=== PATIENT | female | born 1990 | race American Indian/Alaskan Native ===

== ENCOUNTER 2019-12-24 04:29 | Emergency (ER) | payer MEDICAID ==
[2019-12-24 04:34] VITALS: BP 117/72
[2019-12-24 05:10] LABS: Basophils # (Auto) 0.1 K/mm3 (0.0-0.1); Basophils % (Auto) 0.7 % (0.0-1.8); Eosinophils # (Auto) 0.2 K/mm3 (0.0-0.4); Hematocrit 36.4 % (30.3-42.9); Hemoglobin 12.5 gm/dl (10.1-14.3); Lymphocytes # (Auto) 2.2 K/mm3 (1.2-5.4); Mean Corpuscular HGB Conc 34 % (30-34); Mean Corpuscular Volume 94 fl (79-97); Monocytes # (Auto) 0.9 K/mm3 (0.0-0.8); Monocytes % (Auto) 11.3 % (0.0-7.3); Platelet Count 298 K/mm3 (140-440); Red Blood Count 3.86 M/mm3 (3.65-5.03); Red Cell Distribution Width 12.8 % (13.2-15.2)
[2019-12-24 05:28] LABS: Alanine Aminotransferase 42 units/L (7-56); Albumin 4.2 g/dL (3.9-5); Blood Urea Nitrogen 5 mg/dL (7-17); Calcium 9.7 mg/dL (8.4-10.2); Hemolysis Index 4
[2019-12-24 05:45] LABS: BUN/Creatinine Ratio 8
[2019-12-24 07:33] LABS: Bilirubin,Urine NEG (Negative); Blood,Urine NEG (Negative); Color,Urine Yellow (Yellow); Mucus,Urine 3+ /HPF; Protein,Urine <15 mg/dL mg/dL (Negative); Urobilinogen,Urine < 2.0 mg/dL (<2.0); WBC,Urine < 1.0 /HPF (0.0-6.0)
--- NOTE | 2019-12-24 08:00 | Ultrasound Report ---
ULTRASOUND ABDOMEN, LIMITED (RIGHT UPPER QUADRANT) INDICATION / CLINICAL INFORMATION: upper abd pain/preg. COMPARISON: None available. FINDINGS: PANCREAS: Visualized portion shows no significant abnormality. LIVER: No significant abnormality. GALLBLADDER: The gallbladder lumen is filled with echogenic gallstones causing posterior acoustic sha dowing. The gallbladder wall measures 1.5 mm in thickness. No evidence of pericholecystic fluid. BILE DUCTS: No significant abnormality. Common bile duct measures 3 mm. FREE FLUID: None. ADDITIONAL FINDINGS: None. IMPRESSION: 1. Calcified cholelithiasis with significant stone burden. 2. No evidence of acute cholecystitis. Signer Name: Jim Locke MD Signed: 12/24/2019 7:55 AM Workstation Name: [id number]
--- NOTE | 2019-12-24 08:43 | Emergency Department Report ---
ED Abdominal Pain HPI - General Chief Complaint: Abdominal Pain Stated Complaint: 8WEEKS /ABDOMINAL PAIN X 2DAYS Time Seen by Provider: 12/24/19 06:57 Source: patient Mode of arrival: Stretcher Limitations: No Limitations - History of Present Illness Initial Comments: 29-year-old -[place] female who is 8 weeks presents to the em ergency room for upper abdominal pain x2 days. Patient states that she has been suffering from intermittent abdominal pain for a year but the last 2 days it has gotten worse. Patient states that the pain is stabbing and it is constant now. Patient reports pain is better with eating but comes right back. Patient is 7 para 6. Patient reports that her primary DECORATING EQUIPMENT SETTER is Dr. Flynn at [facility]. She denies any fever or chills but does admit to some nausea no vomiting. Complaint: abdominal pain Onset/Timin -: days(s) Location: RUQ Radiation: back Migration to: no migration Severity scale (0 -10): 5 Quality: stabbing, sharp Consistency: constant Improves With: eating Worsens With: nothing Associated Symptoms: nausea - Related Data LMP Date: 11/26/19 Allergies Allergy/AdvReac Type Severity Reaction Status Date / Time No Known Allergies Allergy Unverified 12/24/19 04:32 ED Review of Systems ROS: Stated complaint: 8WEEKS /ABDOMINAL PAIN X 2DAYS Other details as noted in HPI ED Past Medical Hx - Past Medical History Previous Medical History?: No - Surgical History Past Surgical History?: No - Social History Smoking Status: Never Smoker Substance Use Type: None ED Physical Exam - General Limitations: No Limitations ED Course Vital Signs 12/24/19 04:32 Temperature 99.0 F Pulse Rate 105 H Respiratory 18 Rate Blood Pressure 117/72 O2 Sat by Pulse 100 Oximetry ED Medical Decision Making - Lab Data Result diagrams: 12/24/19 04:51 12/24/19 04:51 - Radiology Data Radiology results: report reviewed [facility] [address] [place] [address] Ultrasound Report Signed Patient: RJ PRATT MR#: [id number] : 1990 Acct:[id number] Age/Sex: 29 / F ADM Date: 12/24/19 Loc: ED Attending Dr: Ordering Physician: TULIO JOY MD Date of Service: 12/24/19 Procedure(s): US OB <= 14 weeks fetus Accession Number(s): [id number] cc: TULIO JOY MD ULTRASOUND OBSTETRIC INDICATION / CLINICAL INFORMATION: abdominal pain. Clinical Gestational Age (GA): 7 weeks. 6 days TECHNIQUE: Transabdominal. COMPARISON: None available. FINDINGS: GESTATIONAL SAC: Well-defined oval shape and intrauterine in location. YOLK SAC: No significant abnormality. EMBRYO/FETUS: No significant abnormality. - [place]-Rump Length = 1.46 cm = 7 weeks. 6 days - Heart Rate, beats per minute (if present) = 164 ADNEXA: No significant abnormality. The left ovary was not visualized. FREE FLUID: None. ADDITIONAL FINDINGS: None. IMPRESSION: 1. Single, living intrauterine with estimated sonographic age of 7 weeks. 6 days. Signer Name: Jim Cha MD Signed: 12/24/2019 8:48 AM Workstation Name: [email or web address] Transcribed By: Dictated By: JIM CHA Electronically Authenticated By: JIM CHA Signed Date/Time: 12/24/19847 DD/ 4 TD/TT: Patient: RJ PRATT MR#: [id number] : 1990 Acct:[id number] Age/Sex: 29 / F ADM Date: 12/24/19 Loc: ED Attending Dr: Ordering Physician: GAMAL MAYFIELD Date of Service: 12/24/19 Procedure(s): US abdomen limited Accession Number(s): [id number] cc: GAMAL MAYFIELD ULTRASOUND ABDOMEN, LIMITED (RIGHT UPPER QUADRANT) INDICATION / CLINICAL INFORMATION: upper abd pain/preg. COMPARISON: None available. FINDINGS: PANCREAS: Visualized portion shows no significant abnormality. LIVER: No significant abnormality. GALLBLADDER: The gallbladder lumen is filled with echogenic gallstones causing posterior acoustic shadowing. The gallbladder wall measures 1.5 mm in thickness. No evidence of pericholecystic fluid. BILE DUCTS: No significant abnormality. Common bile duct measures 3 mm. FREE FLUID: None. ADDITIONAL FINDINGS: None. IMPRESSION: 1. Calcified cholelithiasis with significant stone burden. 2. No evidence of acute cholecystitis. Signer Name: Jim Cha MD Signed: 12/24/2019 7:55 AM Workstation Name: [id number] Transcribed By: CH Dictated By: JIM CHA Electronically Authenticated By: JIM CHA Signed Date/Time: 12/24/19754 DD/ 1 TD/TT: - Medical Decision Making 29-year-old -[place] female who is 8 weeks presents to the emergency room for upper abdominal pain x2 days. Patient states that she has been suffering from intermittent abdominal pain for a year but the last 2 days it has gotten worse. Patient states that the pain is stabbing and it is constant now. Patient reports pain is better with eating but comes right back. Patient is 7 para 6. Patient reports that her primary DECORATING EQUIPMENT SETTER is Dr. Flynn at [facility]. She denies any fever or chills but does admit to some nausea no vomiting. OB ultrasound as well as a limited ultrasound of the abdomen concern for cholecystitis versus cholelithiasis. Results are pen ding. Critical care attestation.: If time is entered above; I have spent that time in minutes in the direct care of this critically ill patient, excluding procedure time. ED Disposition Clinical Impression: Cholelithiasis, Right upper quadrant abdominal pain affecting in first trimester Qualifiers: Weeks of gestation: less than 8 weeks Qualified Code(s): Z3A.01 - Less than 8 weeks gestation of Disposition: DC-01 TO HOME OR SELFCARE Is pt being admited?: No Does the pt Need Aspirin: No Condition: Stable Instructions: Abdominal Pain (ED) Additional Instructions: OB ultrasound shows that you have an intrauterine gestation at approximately 7 weeks and 6 days. Ultrasound of your right upper quadrant shows that you have multiple gall stones without gallstone infection. Urine is negative for any infection labs are stable. I recommend for you to follow-up with your DECORATING EQUIPMENT SETTER this week and to take Tylenol as needed for pain. I have given you your lab results and your ultrasound results to share with your DECORATING EQUIPMENT SETTER to help further evaluate your care. Referrals: CARLOS CHRISTENSEN MD [Primary Care Provider] - 3-5 Days SABRINA FLYNN MD [Referring] - 3-5 Days Forms: Work/School Release Form(ED)
--- NOTE | 2019-12-24 08:52 | Ultrasound Report ---
ULTRASOUND OBSTETRIC INDICATION / CLINICAL INFORMATION: abdominal pain. Clinical Gestational Age (GA): 7 weeks. 6 days TECHNIQUE: Transabdominal. COMPARISON: None available. FINDINGS: GESTATIONAL SAC: Well-defined oval shape and intrauterine in location. YOLK SAC: No significant abnormality. EMBRYO/FETUS: No significant abnormality. - [place]-Rump Length = 1.46 cm = 7 weeks. 6 days - Heart Rate, beats per minute (if present) = 164 ADNEXA: No significant abnormality. The left ovary was not visualized. FREE FLUID: None. ADDITIONAL FINDINGS: None. IMPRESSION: 1. Single, living intrauterine with estimated sonographic age of 7 weeks. 6 days. Signer Name: Jim Locke MD Signed: 12/24/2019 8:48 AM Workstation Name: [email or web address]
== END 2019-12-24 09:38 | disposition home or self-care (01) ==
LOC: ED 04:29
DX: O99.611 Diseases of the digestive system complicating pregnancy, first trimester (principal); K80.20 Calculus of gallbladder without cholecystitis without obstruction; Z3A.08 8 weeks gestation of pregnancy
CPT/HCPCS: 36415; 76705; 76801; 80053; 81001; 84702; 85025